=== PATIENT | female | born 1975 | race Caucasian/White ===

== ENCOUNTER 2023-03-29 06:04 | Day surgery (SDC) | payer BC, SELFPAY ==
[2023-03-29] VITALS (16 sets, daily range): BP systolic 85–104; BP diastolic 49–65; PULSE 49–73; RESP 12–16; TEMP 35.8–36.6; O2SAT 95–98; BMI 28.0
[2023-03-29] MEDS: LACTATED RINGERS 1000 ML 1,000 ML 100 ML IV ×2 (06:45→11:10)
[2023-03-29] MEDS: SODIUM CHLORIDE 0.9 % (FLUSH) 10 ML SYRINGE IVF (06:45)
[2023-03-29] MEDS: CEFAZOLIN 2 GM INJ IVP (07:20)
[2023-03-29] MEDS: BUPIVACAINE 0.25% 30 ML INJECTION (07:54)
--- NOTE | 2023-03-29 07:55 | P.ORPRC_ITS ---
Procedure Note Date of procedure: 03/29/23 Procedure: PREOPERATIVE DIAGNOSIS: Left knee lateral meniscus tear POSTOPERATIVE DIAGNOSIS: Left knee lateral meniscus tear NAME OF OPERATION: Left knee arthroscopic partial lateral meniscectomy SURGEON: Tristin Vaughan MD COST ACCOUNTING MANAGER: JEAN Avendaño ANESTHESIA: Spinal ESTIMATED BLOOD LOSS: 0 mL COMPLICATIONS: None SPECIMENS: None DRAINS: None PREOPERATIVE ANTIBIOTICS: Ancef 1 gram INDICATIONS: The patient is a 47-year-old with a history of left knee lateral pain. MRI scan is consistent with a lateral meniscus tear. Despite appropriate nonoperative management, including activity modification, antiinflammatories, [id number] pain medication, bracing, physical therapy, and injections they continue to have pain and disability. Operative intervention was offered. The risks, benefits and expected outcomes were discussed in detail. These included but were not limited to: Infection, bleeding, injury to blood vessel or nerve, venous thromboembolism. All questions were answered to their satisfaction. PROCEDURE: Spinal anesthesia was administered. The patient was placed supine on the operating room table. The left lower extremity was prepped and draped in the usual sterile fashion. The limb was exsanguinated with the Serg bandage. The pneumatic tourniquet was inflated to 300 mmHg. A standard anterolateral portal was established. The arthroscope was introduced. The working portal was established anteromedially. Diagnostic arthroscopy was performed with findings as follows: The suprapatellar pouch is normal. Articular surface on the patella shows diffuse grade 2/3 change. Articular surface on the trochlea shows diffuse grade 2/3 change. The medial gutter is normal. The medial compartment shows focal grade 2/3 change on the central weight-bearing portion of the medial femoral condyle, normal articular cartilage on the medial tibial plateau. The medial meniscus is normal. The notch shows the ACL to be intact. The lateral compartment shows grade 2 change on the lateral femoral condyle and lateral t ibial plateau. The lateral meniscus has a complex degenerative tear of the leading edge from the anterior horn to the midbody, into the posterior horn. There is some undersurface horizontal cleavage tearing and some radial tearing of the leading edge that does not detach the meniscus from the tibia. The lateral gutter is normal. The leading edge of the anterior horn, midbody and posterior horn of the lateral meniscus was debrided to a stable base using a combination of baskets and loc through both portals. Unstable chondral flaps on the patella were debrided with the shaver. Arthroscopic instruments were removed, the portal sites were Steri-Stripped closed, the knee was infiltrated with 30 mL of 0.25% Marcaine without epinephrine. A dry dressing was applied, the tourniquet was released. Sponge and needle counts were correct x 2. The patient tolerated the procedure well. There were no apparent complications. They were carefully transferred to the hospital bed and taken to the postanesthesia care unit in satisfactory condition. PLAN: The patient will be discharged to home. They may weightbear as tolerates. Range of motion will be unrestricted. They will follow up in the office next week for a wound check.
--- NOTE | 2023-03-29 08:06 | W.ANESCHARGE ---
Anesthesia Charges Start Date/Time Anesthesia Start Date: 03/29/23 Anesthesia Start Time: 07:15 Stop Date/Time Anesthesia Stop Date: 03/29/23 Anesthesia Stop Time: 08:07
--- NOTE | 2023-03-29 08:10 | W.ANESCHARGE ---
Anesthesia Charges Start Date/Time Anesthesia Start Date: 03/29/23 Anesthesia Start Time: 07:15 Stop Date/Time Anesthesia Stop Date: 03/29/23 Anesthesia Stop Time: 08:07
[2023-03-29] MEDS: LACTATED RINGERS 1000 ML 1,000 ML 35 ML IV (08:28)
== END 2023-03-29 11:15 | disposition home or self-care (01) ==
PROVIDERS: PCP Family Medicine; Visit Provider Orthopaedic Surgery
PROC: (CPT 29870; principal; 2023-03-29 07:15)
DX: M23.242 Derangement of anterior horn of lateral meniscus due to old tear or injury, left knee (principal); M23.252 Derangement of posterior horn of lateral meniscus due to old tear or injury, left knee
CPT/HCPCS: 29881; 01400; J0690; J1100; J2250; J2405; J2704; J3010; J3490; J7120

== ENCOUNTER 2024-05-08 06:11 | Day surgery (SDC) | payer BC, SELFPAY ==
[2024-05-08] VITALS (7 sets, daily range): BP systolic 107–113; BP diastolic 59–63; PULSE 56–62; RESP 16; TEMP 36.2; O2SAT 97–98; BMI 29.5
--- OUTSIDE RECORDS SUMMARY | 2024-05-08 06:15 | XMS_ITS | Clinical Summary ---
Author Organization [employer] [facility] Address [place], [place] [address] Care Team Providers Care Taxicab Starter Name Role Phone Jessica Payan MD Primary Care Prov ider Allergies No known active allergies Medications Medication Sig Dispensed Refills Start Date End Date Status desogestrel-ethi nyl estradiol 0.15-30 mg-mcg (ORTHO-CEPT; DESOGEN) tabletIndication s:Hot flashes Take 1 Tablet by mouth once daily. Take continuously for 3 months 120 Tablet 4 11/14/2022 4 Discontinue d(*Patient states no longer taking) HYDROcodone-acet aminophen (NORCO) 5-325 mg per tabletIndication s:Aftercare following surgery Take 1 Tablet by mouth every 4 hours if needed for Pain (Severe pain). Or 2 tablets every 6 hours. Max acetaminophen dose: 4000 mg in 24 hrs. 15 Tablet 03/13/2023 4 Discontinue d(*Patient states no longer taking) durable medical equipment (DME)Indications :Aftercare following surgery QUICK FIT W.T.O. UNIV., LT. 1 Each 05/02/2023 4 Discontinue d(*Patient states no longer taking) Active Problems Problem Noted Date Diagnosed Date Osteoarthritis of first carp ometacarpal (CMC) joint of one hand 03/03/2016 Resolved Problems Problem Noted Date Diagnosed Date Resolved Date Supervision of other normal 03/12/2007 11/19/2007 Encounters Date Type Department Care Team Description 04/30/2024 3:00 PM CDT Office Visit [facility] [address] [place] [address] Pia Mata MD Consult (Skin lump right lateral calf and right side breast area) 04/30/2024 Travel 04/17/2024 11:05 AM CDT Office Visit [facility] [address] [place] [address] Jessica Payan MD Physical (48 yo female); Lump (Right calf- new and enlarging ); Derm Problem (Bumps on hand) 04/17/2024 Travel 03/26/2024 3:40 PM CDT Ancillary Procedure [facility] [address] [place] [address] 03/26/2024 Travel from Last 3 Months Immunizations Name Administration Dates Next Due AMB INFLUENZA, IIV4 (AGE=>6M OS) MDV (Flu Clinic Only) 08/01/2019 Influenza Virus, Unspecified 07/24/2018 Influenza, IIV3 (Age >=3 years) 07/23/20 17,07/31/2014,07/21/2013,2011,07/26/2011,07/27/2010,07/12/2009,1 11/13/2003 Influenza, IIV4 08/28/2022,08/04/2021 Influenza, IIV4 (=>6mos) MDV 07/29/2019 Influenza, Injectable, Mdck, Quadrivalent, W/preservative 07/24/2018 Influenza,CCIIV4 PRESERV FREE 09/19/2023, 018 MMR 01/26/1994 Td (Age >=7 Years) 03/02/2022,02/06/2005, 994 Tdap 07/10/2011 Family History Medical History Relation Name Comments Good Health Brother Cancer Father melanoma 1994 Good Health Half-Sister Heart attack Maternal Grandfather artific ial heart Stroke Maternal Grandfather Diabetes Maternal Grandmother Good Health Mother Cancer-breast Paternal Aunt Other Paternal Grandfather acciden t Other Paternal Grandmother acciden t Unknown Paternal Grandmother Psychiatric illness Sister 1 situatio nal with fathers Good Health Sister 2 Good Health Sister 3 Other Son 1 ureterovesicula r reflux requiring surgery Psychiatric illness Son 2 ADHD Psychiatric illness Son 3 ADHD Cancer-ovarian No Family History Relation Name Status Comments Brother Alive Father Half-Sister Alive Maternal Grandfather Maternal Grandmother Mother Alive Paternal Aunt Paternal Grandfather Paternal Grandmother Sister 1 Alive Sister 2 Alive Sister 3 Alive Son 1 Alive Son 2 Alive Son 3 Alive Social History Tobacco Use Types Packs/Day Years Used Date Smoking Tobacco: Never Passive Smoke Exposure: Yes Smokeless Tobacco: Never Tobacco Cessation:Counseling Given: No Comments: smokes Alcohol Use Standard Drinks/Week Comments Yes 0 (1 standard drink = 0.6 oz pur e alcohol) occasionally , monthly , 1-2 PHQ-2 Answer Date Recorded PHQ-2 TOTAL SCORE 0 04/17/2024 Social Connections Answer Date Recorded Frequency of Communication with Friends and Fami ly 0 04/17/2024 Financial Resource Strain Answer Date R ecorded Difficulty of Paying Living Expenses 3 04/17/2024 Difficulty of Paying Living Expenses Not on file 04/17/2024 Food Insecurity Answer Date Recorded Worried About Running Out of Food in the Last Ye ar 1 04/17/2024 Transportation Needs Answer Date Record ed Lack of Transportation (Medical) 1 04/17/2024 Housing Stability Answer Date Recorded Unable to Pay for Housing in the Last Year 1 04/17/2024 Sex and Gender Information Value Date Recorded Sex Assigned at Female 12/21/2020 8:50 PM CDT Gender Identity Female 12/21/2020 8:50 PM CDT Sexual Orientation Straight 12/21/2020 8: 50 PM CDT Obstetrics History Para Term AB IAB SAB Ectopic Multiple Livin g Live Births 4 3 1 2 1 0 1 0 0 3 3 Date Outcome GA Total Labor Labor/2nd/3rd Weight Sex Type Anes PTL Yaritza A1 A5 Name Clin 2000 SAB SPONTANE O US 2001 37w 0d M Vag 2005 Term 40w 0d M Vag 2006 36w 0d M Vag Last Filed Vital Signs Vital Sign Reading Time Taken Comments Blood Pressure 96/66 04/30/2024 2:56 PM CDT Pulse 69 04/30/2024 2:56 PM CDT Temperature 36.6 ??C (97.9 ??F) 02/14/2023 1:50 PM CD T Respiratory Rate 14 01/17/2023 9:20 AM CDT Oxygen Saturation 99% 04/30/2024 2:56 PM CDT Inhaled Oxygen Concentration - - Weight 68.7 kg (151 lb 8 oz) 04/30/2024 2:56 PM CDT Height 154.3 cm (5' 0.75) 04/17/2024 11:06 AM C DT Body Mass Index 28.86 04/17/2024 11:06 AM CDT Plan of Treatment Upcoming Encounters Date Type Department Care Team (Late st Contact Info) Description 05/08/2024 8:00 AM CDT Office Visit [facility] [address] [place] [address] Pia Mata MD [address] [place] [address] Health Maintenance Due Date Last Done Comments Hepatitis C screening for age 18-79 1994 COVID-19 vaccine series ( season) 2023 Influenza for age 9-49 06/08/2024 , 08/28/2022, 08/04/2021, Additional history exists Mammogram for age 45-75 03/26/2025 03/26/20 24, 01/27/2022, 08/16/2021, Additional history exists BMI (ht and wt on same day) for age 18+ 04/17/2025 04/17/2024, 03/01/2023, 11/14/2022, Additional history exists Depression screening for age 12+ 04/17/2025 04/17/2024, 11/14/2022, 07/23/2019, Additional history exists Lipids for age 45-75 08/04/2026 08/04/2021, 02/12/20 13 Pap test for age 21-65 08/04/2026 , 08/04/2021, 03/30/2016, Additional history exists Tetanus booster 03/02/2032 03/02/2022, 10/0 12/2010, 02/06/2005, Additional history exists Colonoscopy through age 75 01/17/2033 01/17/2023, HIV for age 15-65 Completed 02/08/2007 Tdap Completed 07/10/2011 Pneumococcal series for age 6-64 Aged Out No longer eligible based on patient's age to complete this topic Procedures Procedure Name Priority Date/Time Associated Diagnosis Comments XR MAMMO DENICE BILAT SCREEN Routine 03/26/2024 3:53 PM CDT Encounter for screening mammogram for malignant neoplasm of breast COLONOSCOPY 01/17/2023 7:41 AM CDT HPV THIN PREP Routine 08/04/2021 5:42 PM CDT Pap smear for cervical cancer screening LIPID PANEL W REFLEX MEASURED LDL Routine 08/04/2021 5:39 PM CDT Screening for lipoid disorders ANTI HIV 1/2 Routine 02/08/2007 4:52 PM CDT Supervision Of Other Normal from Last 3 Months or Most Recently Relevant to Health Maintenance Results * XR MAMMO DENICE BILAT SCREEN (03/26/2024 3:53 PM CDT) Anatomical Region Laterality Modality BREASTS, Breast Left, Breast Right Bilateral Mammography Impressions 03/26/2024 4:08 PM CDT ??There is no radiographic evidence for malignancy. ??Recommend annual mammograms. MAMMOGRAM ASSESSMENT: ??ACR 1 Negative PATIENTS: You will also receive a letter with your examination results in an easy to read format. ??If you have questions about your results, please contact your referring provider. Narrative 03/26/2024 4:08 PM CDT For Patients: As a result of the Century Cures Act, medical imaging exams and procedure reports are released immediately into your electronic medical record. You may view this report before your referring provider. If you have questions, please contact your health care provider. XR MAMMO DENICE BILAT SCREEN [[id number]] CLINICAL HISTORY: ??This is an asymptomatic 48 y.o. patient. INDICATION FOR EXAM: Mammogram Screening. TECHNIQUE: CC & MLO views were obtained. ??This study was evaluated with the assistance of Computer-Aided Detection. Breast Tomosynthesis was used in interpretation. COMPARISON FILM: Yes 01/27/22 [facility] 12/22/20 [facility] FINDINGS: ??There are scattered areas of fibroglandular density. There are no dominant masses, suspicious micro calcifications or areas of architectural distortion. Jessica Payan MD MAMMO * COLONOSCOPY (01/17/2023 7:41 AM CDT) 01/17/2023 7:41 AM CDT Narrative Transcriptions Serg George MD - 01/17/2023 9:15 AM CDT Patient Name: Lyla Epperson Procedure Date: 01/17/2023 Gender: Female Date of : 1975 Admit Type: Outpatient Procedure: Colonoscopy Proceduralist: Serg George MD , Ofelia Adair RN (Nurse), Jayla Mccall (Nurse) Indications/Pre-Op Diagnosis: Screening for colorectal malignant neoplasm, This is the patient's first colonoscopy Medications: Fentanyl 100 micrograms IV, Midazolam 4 mgIV, The level of sedation administered wasmoderate Procedure Description: The patient had risks, benefits and alternatives explained to andgave informed consent. The patient had a stable cardiopulmonary status and judged an adequate candidate for conscious sedation. The endoscope [id number]-[id number] was passed through the anus andadvanced to the cecum, identified by appendiceal orifice and ileocecal valve.The colonoscopy was performed without difficulty. The patient toleratedthe procedure well. The quality of the bowel preparation was good. The ileocecal valve, appendiceal orifice, and rectum were photographed. Complications: No immediate complications. Estimated Blood Loss & Specimen: Estimated blood loss: none. Specimen collected - None Findings: The perianal and digital rectal examinations were normal. The entire examined colon appeared normal. Impressions/Post-Op Diagnosis: - The entire examined colon is normal. - No specimens collected. Recommendation: - Patient has a contact number available for emergencies. The signsand symptoms of potential delayed complications were discussed with the patient. Return to normal activities tomorrow. Written discharge instructions were provided to the patient. - Resume previous diet. - Continue present medications. - Repeat colonoscopy in 10 years for screening purposes. Moderate Sedation: A time out was performed before the procedure. Moderate (conscious) sedation was administered by the endoscopy nurse and supervised bythe endoscopist. The following parameters were monitored: oxygensaturation, heart rate, blood pressure, EKG, CO2, respiratory rate, adequacy of pulmonary ventilation and reponse to care. Please refer to the patient's medical record flowsheets and nursing notes for moderate sedation details. Total physician intraservice time was 20 minutes. Serg George MD 01/17/2023 9:15:23 AM This report has been signed electronically. Note Initiated On: 01/17/2023 7:41 AM Procedure Code(s): --- Professional --- 80048, Colonoscopy, flexible; diagnostic, including collection of specimen(s) bybrushing or washing, when performed (separateprocedure) Diagnosis Code(s): --- Professional --- Z12.11, Encounter for screening formalignant neoplasm of colon CPT copyright 2021 [employer]. All rights reserved. The codes documented in this report are preliminary and upon enrollment clerk reviewmay be revised to meet current compliance requirements. Scope In: 8:43:40 AM Scope Withdrawal Time 0 hours 7 minutes 12 seconds Scope Out: 9:01:35 AM Serg George MD PROCEDURE ORD * HPV HIGH RISK (08/04/2021 5:42 PM CDT) TYPE 16 Negative Negative 08/09/2021 2:11 PM CDT [facility] TYPE 18 Negative Negative 08/09/2021 2:11 PM CDT [facility] OTHER HIGH RISK TYPES Negative Negative 08/09/2021 2:11 PM CDT [facility] Other (Cervical) Non-Blood / Unknown 08/04/2021 5:42 PM CDT 08/08/2021 8:30 AM CDT [facility] - 08/09/2021 2:11 PM CDT HPV types 16, 18, 31, 33, 35, 39, 45, 51, 52, 56, 58, 59, 66 and 68 DNA were undetectable or below the pre-set threshold. Methodology: Quote Roller Veronica 4800 HPV Test Jessica Payan MD [facility] [address] [place] [address], * LIPID PANEL W REFLEX MEASURED LDL (08/04/2021 5:39 PM CDT) CHOLESTEROL,TOTAL 194 100 - 199 mg/dL 08/05/2021 3:53 PM CDT [facility] TRIGLYCERIDES 46 <150 mg/dL 08/05/2021 3:53 PM CDT [facility] HDL CHOLESTEROL 81 >40 mg/dL 3:53 PM CDT [facility] NON-HDL CHOLESTEROL 113 <145 mg/dl 08/05/2021 3:53 PM CDT [facility] CHOL/HDL RATIO 2.40 <4.50 08/05/2021 3:53 PM CDT [facility] LDL CHOLESTEROL 104 <=130 mg/dL 08/05/2021 3:53 PM CDT [facility] VLDL CHOLESTEROL 9 <=30 mg/dL 08/05/2021 3:53 PM CDT [facility] PROVIDER ORDERED STATUS RANDOM 08/05/2021 3:53 PM CDT [facility] Blood BLOOD SPECIMEN / Unknown Venipuncture / Unknown 08/04/2021 5:39 PM CDT 08/04/2021 5:39 PM CDT Jessica Payan MD [facility] [address] [place] [address], * ANTI HIV 1/2 (02/08/2007 4:52 PM CDT) ANTI HIV 1/2 Non-reacti ve [facility] Blood specimen (specimen) BLOOD SPECIMEN / Unknown 02/08/2007 4:52 PM CDT 02/08/2007 4:43 PM CDT Lynn Babb WOMEN'S SOCCER COACH SEND OUTS [facility] INTERNAL ZIP [id number] [address] from Last 3 Months or Most Recently Relevant to Health Maintenance Advance Directives * Full Code (Latest Code Status on File) Date Activated Date Inactivated Comments 10/31/2019 7:46 AM 10/31/2019 12:53 PM Question Answer Comments Code Status Discussion: Not Discussed * Full Code Date Activated Date Inactivated Comments 08/01/2019 9:53 AM 08/01/2019 7:34 PM Question Answer Comments Code Status Discussion: Not Discussed Care Teams Taxicab Starter Relationship Specialty Start Date End Date Jessica Payan MD [address] [place] [address] PCP - General 02/12/06
[2024-05-08] MEDS: LACTATED RINGERS 1000 ML 1,000 ML 100 ML IV (06:50)
[2024-05-08] MEDS: SODIUM CHLORIDE 0.9 % (FLUSH) 10 ML SYRINGE IVF (06:50)
[2024-05-08] MEDS: CEFAZOLIN 2 GM INJ IVP (08:01)
[2024-05-08] MEDS: BUPIVACAINE 0.25% 30 ML INJECTION (08:17)
--- NOTE | 2024-05-08 08:32 | W.PM.H&PU ---
History & Physical Update History & Physical Update H&P Reviewed and patient assessed: No changes noted
--- NOTE | 2024-05-08 08:35 | PM.GSPRC ---
Operative Note Date of procedure: 05/08/24 Pre-op diagnosis: 1. Right chest wall lipoma 2. Right lateral calf lipoma Post-op diagnosis: Same Indications: Patient is a 48-year-old female presented to clinic with to symptomatic masses. Please see consultation note for full discussion. Risks and benefits of operative excision were discussed at length with the patient. Risks included, but were not limited to: Bleeding, infection, risk of damage to surrounding structures and possible need for additional procedures. All questions concerns were addressed with patient agreeing to proceed. Procedure Description: After discussing the risks and benefits of the procedure, the patient signed informed consent.? The operative site was marked and the patient was brought to the operating room and placed on the operating table in supine position.? Care was taken to pad the patient's pressure points.?? The patient was then given sedation by anesthesia.?? The operative site was then prepped and draped in the usual sterile fashion.? A time-out was then performed. Attention was 1st directed to the right chest wall. A transverse incision was made over the subcutaneous nodule. Dissection was carried down with electrocautery. Using blunt dissection and electrocautery the subcutaneous mass was circumferentially dissected free. The mass was removed in its entirety and measured approximately 5 cm x 5 cm x 2 cm in size. This was passed off the back table to be sent for pathology. Hemostasis was assured with electrocautery. The incision was closed in layers with interrupted 3 0 Vicryl and running 4 O Monocryl. The incision measured 4 cm in size. Steri-Strips were placed over top. Attention was then directed to the right lateral catheterization mass. A vertical incision was made directly over the mass. Dissection was carried down with cautery. The lipoma was palpated within the cavity. This did appeared deep and within the muscle fascia. The fascia was incised with cautery and extended inferior and superior. The lipoma was positioned between fibularis longus and fibularis brevis. He was circumferentially dissected free with cautery. Minimal transsection of surrounding muscle was needed. The mass was removed in its entirety and measured approximately 4 cm x 3 cm x 2 cm in size. This was passed off the back table to be sent for pathology. Hemostasis was assured with electrocautery. I incised fast was reapproximated with running 3-0 Vicryl. The incision was closed in layers with interrupted 3-0 Vicryl and running 4-0 Monocryl. The incision measured 3 cm in size. Steri-Strips were placed over top. The patient was then woken and transported to the recovery area in stable condition. ? The patient tolerated the procedure well. Findings: Lipoma of the right chest wall 5 x 5 x 2 cm. Lipoma of the lateral calf 4 x 3 x 2 cm. Anesthesia: MAC and local Surgeon: Pia Mata MD Estimated blood loss (mL): 5 Additional Specimen Information: 1. Right lateral chest wall lipoma 2. Right lateral calf lipoma Condition: stable Disposition: PACU
--- NOTE | 2024-05-08 08:47 | W.ANESCHARGE ---
Anesthesia Charges Start Date/Time Anesthesia Start Date: 05/08/24 Anesthesia Start Time: 07:41 Stop Date/Time Anesthesia Stop Date: 05/08/24 Anesthesia Stop Time: 08:47
== END 2024-05-08 11:02 | disposition home or self-care (01) ==
PROVIDERS: PCP Family Medicine; Visit Provider Surgery
PROC: (CPT 27634; principal; 2024-05-08 07:30)
DX: D17.1 Benign lipomatous neoplasm of skin and subcutaneous tissue of trunk (principal); D17.23 Benign lipomatous neoplasm of skin and subcutaneous tissue of right leg
CPT/HCPCS: 27634; 11406; 12032; 00400; 88305; J0665; J0690; J1100; J2405; J2704; J3010; J7120